=== PATIENT | female | born 1975 | race Caucasian/White ===

== ENCOUNTER 2017-01-27 21:17 | Emergency (ER) | payer OTHER ==
[2017-01-27 21:33] VITALS: BP 137/93; PULSE 86; TEMP 97.7; BMI 23.8
--- NOTE | 2017-01-27 21:48 | PDOC ---
History of Present Illness - General History Source: Patient Exam Limitations: No Limitations <Angeles Storey - Last Filed: 01/27/17 21:57> - General History Source: Patient Exam Limitations: No Limitations <Dale Cunningham I - Last Filed: 01/27/17 23:01> - General Chief Complaint: Respiratory Stated Complaint: CHEST HEAVINESS Time Seen by Provider: 01/27/17 21:27 - History of Present Illness Initial Comments: 01/27/17 21:57 The patient is a 41 year old female, with no significant past medical history, who presents to the emergency room complaining of 2 days of chest heaviness and productive cough with clear sputum. She states that the chest heaviness feels like a ton of bricks have been sitting on her chest all day. She notes that both of her kids had pneumonia over the past week. She started taking a Z-pack yesterday and has felt some relief. Denies fever, chills, nausea, vomiting. Denies SOB, difficulty breathing. PAST MEDICAL HISTORY: no significant history PAST SURGICAL HISTORY: no significant history FAMILY HISTORY: no pertinent history SOCIAL HISTORY: No tobacco use. MEDICATIONS: reviewed ALLERGIES: As per nursing notes Review of Systems General: No fevers or chills, no weakness, no weight loss HEENT: No change in vision. No ear pain CardioVascular: +chest heaviness. No shortness of breath Respiratory: +productive cough with clear sputum. Gastrointestinal: no nausea, vomiting, diarrhea or constipation, No rectal bleeding Genitourinary: No dysuria, hematuria, or frequency Musculoskeletal: No joint or muscle pain or swelling Neurologic: No headache, vertigo, dizziness or loss of consciousness Psychiatric: nor depression Skin: No rashes or easy bruising Endocrine: no increased thirst or abnormal weight change Allergic: no skin or latex allergy All other systems reviewed and normal Physical Exam General: Well-nourished well-developed individual, no acute distress HEENT: Throat: Normal, tonsils normal, no erythema or exudate Neck: Supple, no meningeal signs, no lymphadenopathy Eyes::Pupils equal reactive and round, extraocular motion intact Chest: Nontender to palpation Cardiac: S1-S2 normal, regular rate and rhythm, no murmurs rubs or gallops Respiratory: Few rhonchi at the right base otherwise the lungs are clear Extremities: Warm, dry, no cyanosis, clubbing, or edema Skin: No rashes Neuro: Alert and oriented x3, nonfocal exam, grossly intact, normal gait Psych: Normal mood and affect (Angeles Storey) 01/27/17 22:54 A portion of this note was documented by scribe services under my direction. I have reviewed the details of the note, within reason, and agree with the documentation. The case summary and management plan written by me. This is a 41-year-old female who is on Tuesday of chest tightness. Patient has a history of a recent upper respiratory tract infection and she started herself on a Z-José. Patient otherwise is healthy and has no cardiac risk factors. Patient father has a history of DVTs however there is no genetic predisposition her family to DVTs as per patient and she is not on control pills. Patient's EKG was normal and showed normal sinus rhythm Patient's chest x-ray will show no acute pathology and was reviewed by me Patient's cardiac enzymes were negative including her troponin 01/27/17 23:00 (Dlae Cunningham I) Past History <Angeles Storey - Last Filed: 01/27/17 21:57> - Past Medical History Other medical history: DENIES - Psycho/Social/Smoking Cessation Hx Anxiety: No Suicidal Ideation: No Smoking History: Never smoked Have you smoked in the past 12 months: No Hx Alcohol Use: No Substance Use Type: None <Dale Cunningham I - Last Filed: 01/27/17 23:01> - Past Medical History Allergies/Adverse Reactions: Allergies Allergy/AdvReac Type Severity Reaction Status Date / Time No Known Allergies Allergy Verified 11/19/14 23:43 Home Medications: Ambulatory Orders Azithromycin [Zithromax -] 250 mg PO UTDICT 01/27/17 - Vital Signs Last Vital Signs Temp Pulse Resp BP Pulse Ox 97.7 F 86 16 137/93 100 01/27/17 21:26 01/27/17 21:26 01/27/17 21:26 01/27/17 21:26 01/27/17 21:26 - ADDITIONAL ORDERS Additional order review: Laboratory Results 01/27/17 01/27/17 22:15 21:15 Creatine Kinase 77 Urine HCG, Qual Negative - RADIOLOGY Radiology Studies Ordered: Category Date Time Status CHEST PA & LAT [RAD] Stat Radiology 01/27/17 22:23 Taken *DC/Admit/Observation/Transfer <Angeles Storey - Last Filed: 01/27/17 21:57> <Dale Cunningham I - Last Filed: 01/27/17 23:01> Diagnosis at time of Disposition: Pleuritic chest pain, Chest tightness or pressure - Discharge Dispostion Disposition: HOME Condition at time of disposition: Stable - Referrals Referrals: Coretta Cardenas MD [Primary Care Provider] - - Patient Instructions Additional Instructions: Your workup was negative for any acute pathology however there is one test for a blood clot that is still pending. If that test comes back positive we will call you and he will need to return to the emergency room. Return to the emergency department immediately with ANY new, persistent or worsening symptoms. Continue any medications as previously prescribed by your physician. You should follow up with your primary doctor as soon as possible regarding today's emergency department visit. . Please make sure your doctor reviews the results of your emergency evaluation. Thank you for coming to the Emergency Department today for your care. It was a pleasure to see you today. Please note that your evaluation is INCOMPLETE until you follow-up with your doctor. - Attestations Scribe Attestion: 01/27/17 21:59 Documentation prepared by JENNIFFER Frazier, acting as medical psychotherapist for Dale Cunningham MD. (Angeles Storey)
[2017-01-27 22:45] LABS: CPK 77 IU/L (26-192)
[2017-01-27 23:02] LABS: TROPONIN I (DFP) < 0.03 ng/ml (0.03-0.50)
--- NOTE | 2017-02-02 12:24 | EKG ---
Test Reason : Blood Pressure : / mmHG Vent. Rate : 089 BPM Atrial Rate : 089 BPM P-R Int : 168 ms QRS Dur : 078 ms QT Int : 362 ms P-R-T Axes : 037 029 026 degrees QTc Int : 440 ms SINUS RHYTHM Delayed R wave progression NO PREVIOUS ECGS AVAILABLE Confirmed by DASHAWN BURCH MD ([id number]) on 02/02/2017 12:24:12 PM Referred By: DR WILLARD Confirmed By:DASHAWN BURCH MD
== END 2017-01-27 23:04 | disposition home or self-care (01) ==
LOC: FER 21:17
DX: R07.89 Other chest pain (principal)
CPT/HCPCS: 36415; 71020-TC; 84484; 84703; 85379; 93005; 93010; 99282-25

== ENCOUNTER 2021-06-30 10:38 | Emergency (ER) | payer OTHER ==
[2021-06-30 10:52] VITALS: BMI 24.3
[2021-06-30] MEDS ORDERED: ACETAMINOPHEN 1000 MG/100 ML BAG IVPB ONE (11:05)
[2021-06-30] MEDS ORDERED: SODIUM CHLORIDE 0.9% 500 ML INFUS.BAG IV ONE (11:05)
[2021-06-30] MEDS ORDERED: ACETAMINOPHEN INJECTION 100 ML IVPB ONE (11:11)
[2021-06-30] MEDS ORDERED: ONDANSETRON 4 MG/2 ML VIAL IVPUSH ONE (11:14)
[2021-06-30] MEDS ORDERED: ONDANSETRON 4 MG/2 ML VIAL ONE (11:25)
[2021-06-30 11:39] LABS: EPITHELIAL CELLS MANY /hpf
[2021-06-30 11:42] LABS: ALBUMIN 4.2 g/dl (3.4-5.0); BILIRUBIN,TOTAL 0.8 mg/dl (0.2-1); CALCIUM 9.4 mg/dl (8.5-10); CREATININE 0.7 mg/dl (0.55-1.3); TOT PROT 7.3 g/dl (6.4-8.2)
[2021-06-30] MEDS ORDERED: POTASSIUM CHLORIDE TABS 20 MEQ TABLET.ER (FP) PO ONE (11:51)
[2021-06-30 13:02] LABS: BASO % 0.5 % (0-2.0); EOS % 0.3 % (0-4.5); HEMATOCRIT 42.7 % (32.4-45.2); HEMOGLOBIN 14.7 GM/dL (10.7-15.3); LYMPH % 19.9 % (8-40); MCH 30.2 pg (25.7-33.7); MCHC 34.5 g/dl (32.0-36.0); MEAN CELL VOLUME 87.7 fl (80-96); MEAN PLT VOLUME 9.4 fl (7.5-11.1); MONO % 5.7 % (3.8-10.2); NEUT % 73.6 % (42.8-82.8); PLATELET COUNT 241 10^3/uL (134-434); RBC 4.87 M/mm3 (3.60-5.2); RDW 13.4 % (11.6-15.6)
[2021-06-30] MEDS ORDERED: KETOROLAC TROMETHAMINE 15 MG/ML VIAL IVPUSH ONE (14:55)
[2021-06-30 15:27] VITALS: BP 154/89; PULSE 79; TEMP 98.9
[2021-06-30] MEDS ORDERED: ACETAMINOPHEN 325 MG TABLET (FP) ONE (15:34)
== END 2021-06-30 16:05 | disposition home or self-care (01) ==
LOC: FER 10:38
PROC: 3E033NZ Introduction of Analgesics, Hypnotics, Sedatives into Peripheral Vein, Percutaneous Approach (ICD-10-PCS; principal; 2021-06-30)
PROC: 3E033GC Introduction of Other Therapeutic Substance into Peripheral Vein, Percutaneous Approach (ICD-10-PCS; 2021-06-30)
PROC: 3E0333Z Introduction of Anti-inflammatory into Peripheral Vein, Percutaneous Approach (ICD-10-PCS; 2021-06-30)
DX: R10.9 Unspecified abdominal pain (principal)
CPT/HCPCS: 36415; 74176-TC; 76830-TC; 80053; 81003; 81015; 84703; 85025; 87086; 96374; 96375; 99285-25; J0131

== ENCOUNTER 2022-12-16 23:01 | Emergency (ER) | payer OTHER ==
[2022-12-16 23:09] VITALS: RESP 18; BMI 24.3
[2022-12-16 23:20] VITALS: BP 138/84; PULSE 97; TEMP 98.5
[2022-12-17] MEDS ORDERED: ACETAMINOPHEN 500 MG TABLET (FP) PO ONE (00:05)
[2022-12-17] MEDS ORDERED: ACETAMINOPHEN 500 MG TABLET (FP) ONE (00:09)
== END 2022-12-17 00:38 | disposition home or self-care (01) ==
LOC: FER 23:01
DX: S93.505A Unspecified sprain of left lesser toe(s), initial encounter (principal); M79.675 Pain in left toe(s); W22.8XXA Striking against or struck by other objects, initial encounter; Y93.9 Activity, unspecified; Y92.511 Restaurant or cafe as the place of occurrence of the external cause
CPT/HCPCS: 73630-TC-LT; 73660-TC-LT-FY; 99283-25

== ENCOUNTER 2023-08-18 04:27 | Emergency (ER) | payer OTHER ==
[2023-08-18 04:38] VITALS: BP 131/92; PULSE 93; RESP 18; TEMP 98.7; BMI 27.1
[2023-08-18] MEDS ORDERED: IBUPROFEN 400 MG TABLET (FP) PO ONE (04:43)
[2023-08-18] MEDS: IBUPROFEN 400 MG TABLET (FP) PO ONE (04:46)
== END 2023-08-18 08:11 | disposition home or self-care (01) ==
LOC: FER 04:27
DX: M25.572 Pain in left ankle and joints of left foot (principal); X50.1XXA Overexertion from prolonged static or awkward postures, initial encounter
CPT/HCPCS: 73610-TC-LT-FY; 73630-TC-LT; 99283-25

== ENCOUNTER 2024-12-23 21:49 | Emergency (ER) | payer OTHER ==
[2024-12-23 21:56] VITALS: BMI 26.3
[2024-12-23 23:38] LABS: ABSOLUTE IMMATURE GRANULOCYTES 0.01 x10^3/uL (0.0-0.031); BASOPHILS # 0.06 x10^3/uL (0.01-0.08); EOSINOPHIL % 0.0 % (0.7-5.8); EOSINOPHILS # 0.00 x10^3/uL (0.04-0.36); MCHC 33.3 g/dl (32.2-35.5); MEAN CELL VOLUME 89.1 fl (79.4-94.8); MEAN PLT VOLUME 10.6 fl (9.4-12.3); MONOCYTE # 0.44 x10^3/uL (0.24-0.86); MONOCYTE % 5.8 % (4.7-12.5); RDW 12.6 % (12.2-17.1)
[2024-12-24] MEDS ORDERED: ACETAMINOPHEN 325 MG TABLET (FP) ONE (00:08)
[2024-12-24] MEDS: ACETAMINOPHEN 325 MG TABLET (FP) PO ONE (00:09)
[2024-12-24 02:21] LABS: ALK PHOS 103.0 U/L (45-117); CO2 25.0 mmol/L (21-32); CREATININE 0.8 mg/dL (0.55-1.3); GLUCOSE,RANDOM 96.0 mg/dL (74-106); SGOT/AST 14.0 U/L (15-37); SGPT/ALT 18.0 U/L (13-61); TOT PROT 6.2 g/dl (6.4-8.2)
[2024-12-24 02:24] LABS: N-TERMINAL BNP 17.8 pg/ml (5-125)
[2024-12-24 03:58] LABS: HIV INTERPRETATION NEGATIVE (NEGATIVE)
[2024-12-24 10:25] VITALS: BP 120/76; PULSE 82; RESP 18; TEMP 98
[2024-12-24 20:04] LABS: HCV DIAGNOSTIC IN-HOUSE W/RFLX NON-REACTIVE (NONREACTIVE)
== END 2024-12-24 11:06 | disposition home or self-care (01) ==
LOC: JER 21:49
DX: S70.11XA Contusion of right thigh, initial encounter (principal); S70.12XA Contusion of left thigh, initial encounter; M79.604 Pain in right leg; M79.605 Pain in left leg; R60.0 Localized edema; R29.898 Other symptoms and signs involving the musculoskeletal system; R53.1 Weakness; R53.83 Other fatigue; R06.01 Orthopnea; R06.02 Shortness of breath; R07.89 Other chest pain; R51.9 Headache, unspecified; I83.93 Asymptomatic varicose veins of bilateral lower extremities; X58.XXXA Exposure to other specified factors, initial encounter
CPT/HCPCS: 36415; 71046-TC-FY; 80053; 83735; 83880; 84484; 85025; 86803; 87389; 93005; 93010; 93970-TC; 99285-25